=== PATIENT | female | born 1965 | race Caucasian/White ===

== ENCOUNTER 2023-01-11 15:00 | Emergency (ER) | payer OTHER ==
[~2023-01-11] VITALS: Ht 167.6 cm; Wt 72.7 kg
[2023-01-11] MEDS ORDERED: ketorolac trometh inj. 60 MG/2 ML VIAL IM ONE (16:20)
[2023-01-11] MEDS ORDERED: NAPR-56 PO (16:23)
[2023-01-11] MEDS ORDERED: CYCL-1 PO (16:23)
[2023-01-11 16:47] VITALS: BP 140/77; PULSE 84; RESP 16; O2SAT 97
[2023-01-11 17:11] VITALS: TEMP 98.5
--- NOTE | 2023-01-12 12:44 | NUR ---
PT. DOCUMENTATION COMPLETED BY [employer] HAS BEEN REVIEWED AND CONCUR WITH [employer].
== END 2023-01-12 06:50 | disposition home or self-care (01) ==
LOC: ER 15:01
DX: S39.012A Strain of muscle, fascia and tendon of lower back, initial encounter (principal); S80.02XA Contusion of left knee, initial encounter; V89.2XXA Person injured in unspecified motor-vehicle accident, traffic, initial encounter; Y93.89 Activity, other specified; Y92.89 Other specified places as the place of occurrence of the external cause; Y99.8 Other external cause status
CPT/HCPCS: 73564; 96372; 99283; J1885